=== PATIENT | female | born 1950 | race Caucasian/White ===

== ENCOUNTER → 2016-06-11 | Outpatient (CLI) | payer OTHER ==
--- NOTE | 2016-06-11 12:01 | USB ---
Reason for exam: additional evaluation requested from abnormal screening. History: Patient is postmenopausal. Family history of breast cancer in mother. Physical Findings: Nurse did not find any significant physical abnormalities on exam. US Breast Workup Limited LUZMAR[facility] Left breast ultrasound demonstrates a 1.2 x 0.6 x 1.3cm oval, solid, questionable node at 2 o'clock. Right breast ultrasound demonstrates a 0.7 x 0.6 x 0.7cm round, solid, questionable node at 7 o'clock. These results were verbally communicated with the patient and result sheet given to the patient on 06/11/16. ASSESSMENT: Benign, BI-RAD 2 RECOMMENDATION: Return to routine screening mammogram schedule for both breasts.
== END | disposition home or self-care (01) ==
LOC: RADUSWWP 10:22
PROVIDERS: ATTEND Family Medicine
DX: R92.8 Other abnormal and inconclusive findings on diagnostic imaging of breast (principal)

== ENCOUNTER → 2017-03-17 | Outpatient (CLI) | payer MEDICARE, OTHER ==
--- NOTE | 2017-03-17 14:31 | XR ---
EXAMINATION TYPE: XR chest 2V DATE OF EXAM: 03/17/2017 COMPARISON: 09/20/2015 TECHNIQUE: PA and lateral views submitted. HISTORY: Cough FINDINGS: The heart is prominent. Small right pleural effusion and left pleural effusion seen. Subsegmental leyda ear changes. No overt failure or pneumothorax. IMPRESSION: 1. Small bilateral pleural effusion and basilar atelectasis favored over early infiltrate.
== END | disposition home or self-care (01) ==
LOC: LABWHC1 13:16
PROVIDERS: ATTEND Family Medicine
DX: J98.11 Atelectasis (principal); J90 Pleural effusion, not elsewhere classified
CPT/HCPCS: 71020; 93005

== ENCOUNTER 2017-09-17 10:54 | Emergency (ER) | payer MEDICARE, OTHER ==
[2017-09-17 11:25] VITALS: BP 124/64; PULSE 56; RESP 16; TEMP 96.9
--- NOTE | 2017-09-17 11:51 | XR ---
EXAMINATION TYPE: XR ankle complete RT DATE OF EXAM: 09/17/2017 CLINICAL HISTORY: Right ankle pain and swelling today. TECHNIQUE: Frontal, lateral and oblique images of the right ankle are obtained. COMPARISON: None. FINDINGS: There is no acute fracture/dislocation evident in the right ankle. There is osteophyte for mation from the medial malleolus. The ankle mortise appears within normal limits. There is mild diff use subcutaneous edema without focal swelling. There is calcaneal spurring superiorly with ossificati on along the distal Achilles tendon also present IMPRESSION: There is no acute fracture or dislocation in the right ankle. As above.
--- NOTE | 2017-09-17 12:41 | ED ---
General Adult HPI - General Chief complaint: Extremity Injury, Lower Stated complaint: Ankle Pain/Swelling Time Seen by Provider: 09/17/17 12:12 Source: patient, RN notes reviewed Mode of arrival: ambulatory Limitations: no limitations - History of Present Illness Initial comments: 67-year-old female sent to the emergency department for a chief complaint of right ankle pain. Patient denies any known injury. Patient states the pain is along the lateral side of the ankle. Patient states it hurts to walk on. Patient has not tried anything for pain or icing the lower extremity. Patient states it started when she woke up this morning and noticed it. Patient states she has noticed minor swelling on the lateral side of the ankle as well. Patient denies ever having surgery in that right ankle. Patient denies any pain in the back of the calf or the knee. Patient denies any history of blood clots. Patient denies any pain anywhere else in the foot, ankle, or leg. Patient denies chest pain, shortness of breath, abdominal pain, nausea or vomiting. - Related Data Home Medications Medication Instructions Recorded Confirmed Atorvastatin [Lipitor] 40 mg PO HS 09/04/15 09/17/17 Furosemide [Lasix] 40 mg PO DAILY 09/17/17 09/17/17 Losartan/Hydrochlorothiazide 1 tab PO DAILY 09/17/17 09/17/17 [Losartan-Hctz 100-12.5 mg Tab] Metoprolol Succinate [Toprol XL] 25 mg PO DAILY 09/17/17 09/17/17 Previous Rx's Medication Instructions Recorded Ibuprofen [Motrin] 600 mg PO Q8HR PRN #20 tab 09/17/17 Allergies Allergy/AdvReac Type Severity Reaction Status Date / Time Penicillins Allergy Rash/Hives Verified 09/17/17 12:28 Review of Systems ROS Statement: Those systems with pertinent positive or pertinent negative responses have been documented in the HPI. ROS Other: All systems not noted in ROS Statement are negative. Past Medical History Past Medical History: Heart Failure, Hyperlipidemia, Hypertension History of Any Multi-Drug Resistant Organisms: None Reported Past Surgical History: Tonsillectomy Past Psychological History: Anxiety, Depression Smoking Status: Never smoker Past Alcohol Use History: Rare Past Drug Use History: None Reported General Exam Limitations: no limitations General appearance: alert, in no apparent distress Respiratory exam: Present: normal lung sounds bilaterally. Absent: respiratory distress, wheezes, rales, rhonchi, stridor Cardiovascular Exam: Present: regular rate, normal rhythm, normal heart sounds. Absent: systolic murmur, diastolic murmur, rubs, gallop, clicks Extremities exam: Present: tenderness (Tenderness inferior to the lateral malleolus of the right ankle), normal capillary refill, joint swelling (Mild swelling to the lateral ankle), other (2+ pedal pulses bilaterally.). Absent: full ROM (Limited inversion and dorsiflexion of the right ankle with pain), pedal edema, calf tenderness (Negative homans sign) Neurological exam: Present: alert, oriented X3 Psychiatric exam: Present: normal affect, normal mood Course Vital Signs 09/17/17 11:22 Temperature 96.9 F L Pulse Rate 56 L Respiratory 16 Rate Blood Pressure 124/64 O2 Sat by Pulse 98 Oximetry Medical Decision Making - Medical Decision Making 67-year-old female presents to the emergency department for a chief complaint of ankle pain. Patient denies injury. Patient has tenderness to the inferior lateral malleolus. No tenderness on any bony aspects. Patient's pain is worse with inversion and dorsiflexion of the right ankle. X-ray demonstrates no acute bony abnormalities of the right ankle. Patient has not tried anything for pain. This is likely a sprain. She will follow-up with her primary care provider. In the meantime she will take ibuprofen or Tylenol and use the rice method of therapy as discussed. Instructions are also included and discharge. She will return to the emergency Department if she notices any worsening symptoms. Disposition Clinical Impression: Ankle pain Disposition: HOME SELF-CARE Condition: Good Instructions: Ankle Sprain (ED), RICE Therapy (ED) Additional Instructions: Please take ibuprofen or Tylenol and use the rice method of therapy as discussed. Instructions are included in your discharge paperwork. Please follow-up with primary care in 1-2 days. Please return to the emergency department if symptoms worsen. Prescriptions: Ibuprofen [Motrin] 600 mg PO Q8HR PRN #20 tab PRN Reason: Pain Referrals: Domenic Enciso DO [Primary Care Provider] - 1-2 days Time of Disposition: 12:33
== END 2017-09-17 12:48 | disposition home or self-care (01) ==
LOC: EC 10:54
DX: M25.571 Pain in right ankle and joints of right foot (principal); I11.0 Hypertensive heart disease with heart failure; I50.9 Heart failure, unspecified; E78.5 Hyperlipidemia, unspecified; F32.9 Major depressive disorder, single episode, unspecified; F41.9 Anxiety disorder, unspecified; Z79.899 Other long term (current) drug therapy; Z88.0 Allergy status to penicillin
CPT/HCPCS: 99283

== ENCOUNTER 2017-11-10 22:20 | Emergency (ER) | payer MEDICARE, OTHER ==
[2017-11-10 22:39] VITALS: TEMP 98.1
--- NOTE | 2017-11-10 23:20 | ED ---
Skin/Abscess/FB HPI - General Chief complaint: Skin/Abscess/Foreign Body Stated complaint: bite on stomach Time Seen by Provider: 11/10/17 23:03 Source: patient, RN notes reviewed, old records reviewed Mode of arrival: ambulatory Limitations: no limitations - History of Present Illness Initial comments: 67 year old female with CC of insect bite on her Stomach. She reports that she applayed some cream over the area. She was concerned and wanted to be evaluated. Denies pruritis or pain. She does not know what bit her. She denies fevers, chills, numbness, or tingling. - Related Data Home Medications Medication Instructions Recorded Confirmed Atorvastatin [Lipitor] 40 mg PO HS 09/04/15 11/10/17 Furosemide [Lasix] 40 mg PO DAILY 09/17/17 11/10/17 Losartan/Hydrochlorothiazide 1 tab PO DAILY 09/17/17 11/10/17 [Losartan-Hctz 100-12.5 mg Tab] Metoprolol Succinate [Toprol XL] 25 mg PO DAILY 09/17/17 11/10/17 Previous Rx's Medication Instructions Recorded Hydrocortisone Cream 1 applic TOPICAL QID #1 tube 11/10/17 [Hydrocortisone 1% Cream] Allergies Allergy/AdvReac Type Severity Reaction Status Date / Time Penicillins Allergy Rash/Hives Verified 11/10/17 22:40 Review of Systems ROS Statement: Those systems with pertinent positive or pertinent negative responses have been documented in the HPI. ROS Other: All systems not noted in ROS Statement are negative. Past Medical History Past Medical History: Heart Failure, Hyperlipidemia, Hypertension History of Any Multi-Drug Resistant Organisms: None Reported Past Surgical History: Tonsillectomy Past Psychological History: Anxiety, Depression Smoking Status: Former smoker Past Alcohol Use History: None Reported Past Drug Use History: None Reported General Exam - General Exam Comments Initial Comments: This is a well appearing 67 year old female, no distress. Limitations: no limitations General appearance: alert, in no apparent distress Head exam: Present: atraumatic, normocephalic, normal inspection Eye exam: Present: normal appearance, PERRL, EOMI. Absent: scleral icterus, conjunctival injection, periorbital swelling ENT exam: Present: normal exam, mucous membranes moist Neck exam: Present: normal inspection. Absent: tenderness, meningismus, lymphadenopathy Respiratory exam: Present: normal lung sounds bilaterally. Absent: respiratory distress, wheezes, rales, rhonchi, stridor Cardiovascular Exam: Present: regular rate, normal rhythm, normal heart sounds. Absent: systolic murmur, diastolic murmur, rubs, gallop, clicks GI/Abdominal exam: Present: soft, normal bowel sounds, other (2cm area of erythema over abdomen. ). Absent: distended, tenderness, guarding, rebound, rigid Extremities exam: Present: normal inspection, full ROM, normal capillary refill. Absent: tenderness, pedal edema, joint swelling, calf tenderness Back exam: Present: normal inspection Neurological exam: Present: alert, oriented X3, CN II-XII intact Psychiatric exam: Present: normal affect, normal mood Skin exam: Present: warm, dry, intact, normal color. Absent: rash Course Vital Signs 11/10/17 11/10/17 22:36 23:52 Temperature 98.1 F 98.1 F Pulse Rate 59 L 57 L Respiratory 15 16 Rate Blood Pressure 165/70 124/79 O2 Sat by Pulse 100 97 Oximetry Medical Decision Making - Medical Decision Making Patient is a 67 year old female withCC of insect bite over abdomen. She has a 2 cm area of localized erythema and reaction tobite. No streaking. Patient appears well. Discussed using steriod cream and monitoring if the redness worsens to return. Discussed return parameters. Disposition Clinical Impression: Insect bite Disposition: HOME SELF-CARE Condition: Good Instructions: Insect Bite or Sting (ED) Additional Instructions: Apply cool compresses over the area. Take Benadryl. If the area of redness worsens return. Apply the cortisone cream over the area. Prescriptions: Hydrocortisone Cream [Hydrocortisone 1% Cream] 1 applic TOPICAL QID #1 tube Is patient prescribed a controlled substance at d/c from ED?: No When asked, does pt state using other controlled substances?: No If prescribed controlled substance>3 days was MAPS reviewed?: No If opioid is for acute pain is fill amount 7 days or less?: No If Rx opioid, was Start Talking consent form obtained?: No Referrals: Domenic Enciso DO [Primary Care Provider] - 1-2 days Time of Disposition: 23:19
[2017-11-11 00:01] VITALS: BP 124/79; PULSE 57; RESP 16
== END 2017-11-10 23:52 | disposition home or self-care (01) ==
LOC: EC 22:20
DX: S30.861A Insect bite (nonvenomous) of abdominal wall, initial encounter (principal); I11.0 Hypertensive heart disease with heart failure; I50.9 Heart failure, unspecified; E78.5 Hyperlipidemia, unspecified; Z88.0 Allergy status to penicillin; Z79.899 Other long term (current) drug therapy; Z87.891 Personal history of nicotine dependence; W57.XXXA Bitten or stung by nonvenomous insect and other nonvenomous arthropods, initial encounter
CPT/HCPCS: 99283

== ENCOUNTER 2018-03-17 10:09 | Emergency (ER) | payer MEDICARE, OTHER ==
--- NOTE | 2018-03-17 10:33 | ED ---
Arrhythmia/Palpitations HPI - General Chief Complaint: Arrhythmia/Palpitations Stated Complaint: Palpitations Time Seen by Provider: 03/17/18 10:15 Source: patient, RN notes reviewed Mode of arrival: wheelchair Limitations: no limitations - History of Present Illness Initial Comments: This is a 68-year-old female history of CHF who presents with 2 issues today was that she's been having more and pronounced skin beats also she is had pain and swelling to the left leg since chest today. No chest pain fevers chills nausea vomiting sweats no overt shortness of breath at this time no other modifying factors she did recently have one of her medications. Complaint: "skipped beats" - Related Data Home Medications Medication Instructions Recorded Confirmed Furosemide [Lasix] 40 mg PO DAILY 09/17/17 03/17/18 Losartan/Hydrochlorothiazide 1 tab PO DAILY 09/17/17 03/17/18 [Losartan-Hctz 100-12.5 mg Tab] Metoprolol Succinate [Toprol XL] 25 mg PO DAILY 09/17/17 03/17/18 Atorvastatin [Lipitor] 80 mg PO HS 03/17/18 03/17/18 Potassium Chloride ER [K-Dur 10] 10 meq PO DAILY 03/17/18 03/17/18 Previous Rx's Medication Instructions Recorded Ibuprofen 800 mg PO Q6HR PRN #20 tablet 03/17/18 Allergies Allergy/AdvReac Type Severity Reaction Status Date / Time Penicillins Allergy Rash/Hives Verified 03/17/18 10:39 Review of Systems ROS Statement: Those systems with pertinent positive or pertinent negative responses have been documented in the HPI. ROS Other: All systems not noted in ROS Statement are negative. Past Medical History Past Medical History: Heart Failure, Hyperlipidemia, Hypertension History of Any Multi-Drug Resistant Organisms: None Reported Past Surgical History: Tonsillectomy, Tubal Ligation Past Psychological History: Anxiety, Depression Smoking Status: Former smoker Past Alcohol Use History: None Reported Past Drug Use History: None Reported General Exam - General Exam Comments Initial Comments: This is a well-developed well-nourished awake alert oriented 3 female Limitations: no limitations General appearance: alert, in no apparent distress Head exam: Present: atraumatic, normocephalic, normal inspection Eye exam: Present: normal appearance, PERRL, EOMI. Absent: scleral icterus, conjunctival injection, periorbital swelling ENT exam: Present: normal exam, mucous membranes moist Neck exam: Present: normal inspection. Absent: tenderness, meningismus, lymphadenopathy Respiratory exam: Present: normal lung sounds bilaterally. Absent: respiratory distress, wheezes, rales, rhonchi, stridor Cardiovascular Exam: Present: regular rate, normal rhythm, normal heart sounds. Absent: systolic murmur, diastolic murmur, rubs, gallop, clicks GI/Abdominal exam: Present: soft, normal bowel sounds. Absent: distended, tenderness, guarding, rebound, rigid Extremities exam: Present: normal inspection, full ROM, normal capillary refill. Absent: tenderness, pedal edema, joint swelling, calf tenderness Back exam: Present: normal inspection Neurological exam: Present: alert, oriented X3, CN II-XII intact Psychiatric exam: Present: normal affect, normal mood Skin exam: Present: warm, dry, intact, normal color. Absent: rash Course Vital Signs 03/17/18 03/17/18 10:11 12:39 Temperature 98.4 F Pulse Rate 75 70 Respiratory 18 18 Rate Blood Pressure 117/65 101/57 O2 Sat by Pulse 98 98 Oximetry EKG Findings - EKG Results: EKG: interpreted by BEKA, sinus rhythm (Sinus rhythm with sinus arrhythmia rate was 86. Interval 162 QRS 86 QT since QTC 366/437 minimal voltage criteria for LVH nonspecific anterior configuration) Medical Decision Making - Medical Decision Making The patient did get some improvement in her pain with Toradol she will be discharged with follow-up with her doctor return when necessary I will recommend that she double up on her potassium for a week he get a recheck through her physician. - Lab Data Result diagrams: 03/17/18 10:35 03/17/18 10:35 Lab Results 03/17/18 03/17/18 03/17/18 Range/Units 10:35 10:35 10:35 WBC 7.4 (3.8-10.6) k/uL RBC 3.92 (3.80-5.40) m/uL Hgb 12.2 (11.4-16.0) gm/dL Hct 35.2 (34.0-46.0) % MCV 89.7 (80.0-100.0) fL MCH 31.1 (25.0-35.0) pg MCHC 34.7 (31.0-37.0) g/dL RDW 13.9 (11.5-15.5) % Plt Count 126 L (150-450) k/uL Neutrophils % 70 % Lymphocytes % 23 % Monocytes % 4 % Eosinophils % 1 % Basophils % 1 % Neutrophils # 5.2 (1.3-7.7) k/uL Lymphocytes # 1.7 (1.0-4.8) k/uL Monocytes # 0.3 (0-1.0) k/uL Eosinophils # 0.1 (0-0.7) k/uL Basophils # 0.0 (0-0.2) k/uL PT (9.0-12.0) sec INR (<1.2) APTT (22.0-30.0) sec D-Dimer (<0.60) mg/L FEU Sodium 142 (137-145) mmol/L Potassium 3.0 L (3.5-5.1) mmol/L Chloride 107 (98-107) mmol/L Carbon Dioxide 25 (22-30) mmol/L Anion Gap 10 mmol/L BUN 23 H (7-17) mg/dL Creatinine 0.98 (0.52-1.04) mg/dL Est GFR (CKD-EPI)AfAm 70 (>60 ml/min/1.73 sqM) Est GFR (CKD-EPI)NonAf 60 (>60 ml/min/1.73 sqM) Glucose 154 H (74-99) mg/dL Calcium 8.9 (8.4-10.2) mg/dL Magnesium 1.8 (1.6-2.3) mg/dL Total Bilirubin 1.6 H (0.2-1.3) mg/dL AST 21 (14-36) U/L ALT 20 (9-52) U/L Alkaline Phosphatase 73 (38-126) U/L Total Creatine Kinase 65 (30-135) U/L CK-MB (CK-2) 0.5 (0.0-2.4) ng/mL CK-MB (CK-2) Rel Index 0.8 Troponin I <0.012 (0.000-0.034) ng/mL Total Protein 6.6 (6.3-8.2) g/dL Albumin 3.5 (3.5-5.0) g/dL TSH 1.490 (0.465-4.680) mIU/L 03/17/18 Range/Units 10:35 WBC (3.8-10.6) k/uL RBC (3.80-5.40) m/uL Hgb (11.4-16.0) gm/dL Hct (34.0-46.0) % MCV (80.0-100.0) fL MCH (25.0-35.0) pg MCHC (31.0-37.0) g/dL RDW (11.5-15.5) % Plt Count (150-450) k/uL Neutrophils % % Lymphocytes % % Monocytes % % Eosinophils % % Basophils % % Neutrophils # (1.3-7.7) k/uL Lymphocytes # (1.0-4.8) k/uL Monocytes # (0-1.0) k/uL Eosinophils # (0-0.7) k/uL Basophils # (0-0.2) k/uL PT 10.0 (9.0-12.0) sec INR 1.0 (<1.2) APTT 23.3 (22.0-30.0) sec D-Dimer 0.55 (<0.60) mg/L FEU Sodium (137-145) mmol/L Potassium (3.5-5.1) mmol/L Chloride (98-107) mmol/L Carbon Dioxide (22-30) mmol/L Anion Gap mmol/L BUN (7-17) mg/dL Creatinine (0.52-1.04) mg/dL Est GFR (CKD-EPI)AfAm (>60 ml/min/1.73 sqM) Est GFR (CKD-EPI)NonAf (>60 ml/min/1.73 sqM) Glucose (74-99) mg/dL Calcium (8.4-10.2) mg/dL Magnesium (1.6-2.3) mg/dL Total Bilirubin (0.2-1.3) mg/dL AST (14-36) U/L ALT (9-52) U/L Alkaline Phosphatase (38-126) U/L Total Creatine Kinase (30-135) U/L CK-MB (CK-2) (0.0-2.4) ng/mL CK-MB (CK-2) Rel Index Troponin I (0.000-0.034) ng/mL Total Protein (6.3-8.2) g/dL Albumin (3.5-5.0) g/dL TSH (0.465-4.680) mIU/L - Radiology Data Radiology results: report reviewed (I did review the imaging and reports no acute findings.), image reviewed Disposition Clinical Impression: Palpitations, Hypokalemia, Leg pain Disposition: HOME SELF-CARE Condition: Good Instructions: Heart Palpitations (ED), Hypokalemia (ED), Leg Pain (ED) Additional Instructions: Double up on her potassium for 1 week Prescriptions: Ibuprofen 800 mg PO Q6HR PRN #20 tablet PRN Reason: Pain Is patient prescribed a controlled substance at d/c from ED?: No Referrals: Domenic Enciso DO [Primary Care Provider] - 1-2 days
[2018-03-17 10:48] LABS: Basophils % (A) 1 %; Eosinophils # (A) 0.1 k/uL (0-0.7); Eosinophils % (A) 1 %; HCT 35.2 % (34.0-46.0); HGB 12.2 gm/dL (11.4-16.0); Lymphocytes # (A) 1.7 k/uL (1.0-4.8); Lymphocytes % (A) 23 %; MCH 31.1 pg (25.0-35.0); MCHC 34.7 g/dL (31.0-37.0); MCV 89.7 fL (80.0-100.0); Mean Platelet Volume 8.1; Monocytes # (A) 0.3 k/uL (0-1.0); Monocytes % (A) 4 %; Neutrophils # (A) 5.2 k/uL (1.3-7.7); Neutrophils % (A) 70 %; Platelet Count 126 k/uL (150-450); RBC 3.92 m/uL (3.80-5.40); RDW 13.9 % (11.5-15.5); WBC 7.4 k/uL (3.8-10.6)
[2018-03-17 10:59] LABS: Albumin 3.5 g/dL (3.5-5.0); Calcium 8.9 mg/dL (8.4-10.2); Magnesium 1.8 mg/dL (1.6-2.3); Total Bilirubin 1.6 mg/dL (0.2-1.3); Total Protein 6.6 g/dL (6.3-8.2)
[2018-03-17 11:01] LABS: D-Dimer 0.55 mg/L FEU (<0.60); Partial Thromboplastin Time 23.3 sec (22.0-30.0)
--- NOTE | 2018-03-17 11:04 | XR ---
EXAMINATION TYPE: XR chest 2V DATE OF EXAM: 03/17/2018 COMPARISON: Prior chest x-ray 03/17/2017 HISTORY: Dysrhythmia TECHNIQUE: Frontal and lateral views of the chest are obtained. FINDINGS: Patient is rotated. There are overlying cardiac leads. There is no focal air space opacity, pleural effusion, or pneumothorax seen. The cardiac silhouette size is stable, heart size is accent uated by rotation. The osseous structures are intact. The aorta is dense. IMPRESSION: Stable exam. Suspect cardiomegaly.
[2018-03-17 11:13] LABS: Creatine Kinase 65 U/L (30-135)
[2018-03-17] MEDS ORDERED: MAGNESIUM SULFATE-D5W PMX 1 GM in DEXTROSE/WATER 1 100ML.BAG IVPB ONE (11:15)
[2018-03-17] MEDS ORDERED: POTASSIUM CHLORIDE ER 20 MEQ TAB.ER PO STA (11:15)
[2018-03-17 11:26] LABS: Creatine Kinase MB 0.5 ng/mL (0.0-2.4); Troponin I <0.012 ng/mL (0.000-0.034)
--- NOTE | 2018-03-17 11:38 | US ---
EXAMINATION TYPE: US venous doppler duplex LE LT DATE OF EXAM: 03/17/2018 11:26 AM COMPARISON: NONE CLINICAL HISTORY: Pain. ankle swelling x 1 day SIDE PERFORMED: Left TECHNIQUE: The lower extremity deep venous system is examined utilizing real time linear array sonog eneida with graded compression, doppler sonography and color-flow sonography. VESSELS IMAGED: External Iliac Vein (EIV) Common Femoral Vein Deep Femoral Vein Greater Saphenous Vein * Femoral Vein Popliteal Vein Small Saphenous Vein * Proximal Calf Veins (* superficial vessels) Left Leg: Appears negative for DVT There is normal flow, compressibility, vascular waveforms. IMPRESSION: No evident deep venous thrombosis at or above the left knee. Follow-up as indicated.
[2018-03-17 12:40] VITALS: BP 101/57
[2018-03-17] MEDS ORDERED: KETOROLAC 30 MG/ML 1 ML VIAL IVP STA (12:48)
[2018-03-17 13:52] VITALS: PULSE 73; RESP 16; TEMP 98.6
--- NOTE | 2018-03-17 14:02 | XR ---
EXAMINATION TYPE: XR ankle complete LT DATE OF EXAM: 03/17/2018 CLINICAL HISTORY: Pain and swelling. TECHNIQUE: Frontal, lateral and oblique images of the left ankle are obtained. COMPARISON: None. FINDINGS: Demineralization is present. There is no acute fracture/dislocation evident in the left ank le. Small spur from medial malleolus is seen. There is moderate-sized superior calcaneal spur at dis jane Achilles tendon attachment. There is tiny inferior calcaneal spur. There is suspected accessory o ssicle near base of cuboid bone seen best on lateral view. The ankle mortise appears within normal li mits. The overlying soft tissue appears unremarkable. IMPRESSION: There is no acute fracture or dislocation in the left ankle.
== END 2018-03-17 14:20 | disposition home or self-care (01) ==
LOC: EC 10:09
DX: E87.6 Hypokalemia (principal); M79.605 Pain in left leg; M79.89 Other specified soft tissue disorders; I11.0 Hypertensive heart disease with heart failure; I50.9 Heart failure, unspecified; E78.5 Hyperlipidemia, unspecified; Z87.891 Personal history of nicotine dependence; Z79.899 Other long term (current) drug therapy; Z88.0 Allergy status to penicillin
CPT/HCPCS: 36415; 93005; 85379; 80053; 84443; 82550; 82553; 83735; 84484; 85025; 85610; 85730; 73610; 71046; 93971; 99285; 96365; 96375; J1885; J3475

== ENCOUNTER 2018-12-31 12:32 | Emergency (ER) | payer MEDICARE, OTHER ==
[2018-12-31 12:38] VITALS: BP 127/81; PULSE 58; RESP 18; TEMP 98.2
--- NOTE | 2018-12-31 13:02 | ED ---
Skin/Abscess/FB HPI - General Chief complaint: Skin/Abscess/Foreign Body Stated complaint: bug bite lt wrist Time Seen by Provider: 12/31/18 12:39 Source: patient, RN notes reviewed, old records reviewed Mode of arrival: ambulatory Limitations: no limitations - History of Present Illness Initial comments: Patient is a 68-year-old female who presents medicine department today with redness over the anterior aspect of her left wrist. Patient reports that she can she was bit by a spider. She states that she squeezed the area and small amount of pus was removed. Patient states that feels like there is still "poison". Patient denies any significant hand swelling. She denies any peripheral paresthesias. - Related Data Home Medications Medication Instructions Recorded Confirmed Furosemide [Lasix] 40 mg PO DAILY 09/17/17 03/17/18 Losartan/Hydrochlorothiazide 1 tab PO DAILY 09/17/17 03/17/18 [Losartan-Hctz 100-12.5 mg Tab] Metoprolol Succinate [Toprol XL] 25 mg PO DAILY 09/17/17 03/17/18 Atorvastatin [Lipitor] 80 mg PO HS 03/17/18 03/17/18 Potassium Chloride ER [K-Dur 10] 10 meq PO DAILY 03/17/18 03/17/18 Previous Rx's Medication Instructions Recorded Ibuprofen 800 mg PO Q6HR PRN #20 tablet 03/17/18 Cephalexin [Keflex] 500 mg PO Q6HR 3 Days #12 cap 12/31/18 Mupirocin 2% Oint [Bactroban 2% 1 applic TOPICAL TID #60 gm 12/31/18 Oint] Allergies Allergy/AdvReac Type Severity Reaction Status Date / Time Penicillins Allergy Rash/Hives Verified 12/31/18 12:38 Review of Systems ROS Statement: Those systems with pertinent positive or pertinent negative responses have been documented in the HPI. ROS Other: All systems not noted in ROS Statement are negative. Past Medical History Past Medical History: Heart Failure, Hyperlipidemia, Hypertension History of Any Multi-Drug Resistant Organisms: None Reported Past Surgical History: Tonsillectomy, Tubal Ligation Past Psychological History: Anxiety, Depression Smoking Status: Former smoker Past Alcohol Use History: Rare Past Drug Use History: None Reported General Exam - General Exam Comments Initial Comments: Patient is a 68-year-old female. Alert and oriented 3. No significant distress. Limitations: no limitations General appearance: alert, in no apparent distress Head exam: Present: atraumatic, normocephalic, normal inspection Eye exam: Present: normal appearance, PERRL, EOMI. Absent: scleral icterus, conjunctival injection, periorbital swelling ENT exam: Present: normal exam, mucous membranes moist Neck exam: Present: normal inspection. Absent: tenderness, meningismus, l ymphadenopathy Respiratory exam: Present: normal lung sounds bilaterally. Absent: respiratory distress, wheezes, rales, rhonchi, stridor Cardiovascular Exam: Present: regular rate, normal rhythm, normal heart sounds. Absent: systolic murmur, diastolic murmur, rubs, gallop, clicks GI/Abdominal exam: Present: soft, normal bowel sounds. Absent: distended, tenderness, guarding, rebound, rigid Extremities exam: Present: normal inspection, full ROM, normal capillary refill. Absent: tenderness, pedal edema, joint swelling, calf tenderness Left Forearm Wrist exam: Present: normal inspection, swelling ( is a 1-2 cm area of erythema and swelling over the radial aspect of the anterior wrist. Patient has no significant induration.) Hand Wrist exam: Present: normal inspection, full ROM Neuro motor exam: Present: wrist extension intact, thumb opposition intact, thumb IP flexion intact, thumb adduction intact, fingers 2-5 abduction intact Vascular: Present: normal capillary refill Back exam: Present: normal inspection Neurological exam: Present: alert, oriented X3, CN II-XII intact Psychiatric exam: Present: normal affect, normal mood Skin exam: Present: warm, dry, intact, normal color. Absent: rash Course Vital Signs 12/31/18 12:36 Temperature 98.2 F Pulse Rate 58 L Respiratory 18 Rate Blood Pressure 127/81 O2 Sat by Pulse 95 Oximetry Medical Decision Making - Medical Decision Making Patient is a 68-year-old female who presents emergency department today for evaluation for small wound over her left wrist. Patient was she was bit by a spider few days ago. She has a 2 cm area of erythema and firmness. No significant pustules noted at this time. Patient believes that these be drained. I offered incision and drainage. The area was cleaned with alcohol and an 18-gauge needle was inserted in the eye. Blood was removed and pus. I discussed that Patien twill be started on antibiotic ointment advise close follow-up with primary care doctor. All questions were answered return parameters were discussed. Disposition Clinical Impression: Wound, open, wrist Disposition: HOME SELF-CARE Condition: Good Instructions (If sedation given, give patient instructions): Abscess (ED) Additional Instructions: Apply antibiotic ointment over the area. Keep the area clean and dry. Patient should've close follow-up with primary care doctor if area of redness worsens. Prescriptions: Mupirocin 2% Oint [Bactroban 2% Oint] 1 applic TOPICAL TID #60 gm Cephalexin [Keflex] 500 mg PO Q6HR 3 Days #12 cap Is patient prescribed a controlled substance at d/c from ED?: No Referrals: Domenic Enciso DO [Primary Care Provider] - 1-2 days Time of Disposition: 13:02
--- NOTE | 2019-01-01 02:05 | CDI ---
Documentation Clarification OP Dear Aries MELARA, DO Please do addendum to ED report for I&D procedure documentation, In MDM mentioned as 18 gauge needle used. So kindly clarify the procedure done. Thank you, Jewel Rubalcava Offset Label Rewinder If you have any question, Please contact gift shop manager at [phone] [facility]
== END 2018-12-31 13:23 | disposition home or self-care (01) ==
LOC: EC 12:32
DX: T63.301A Toxic effect of unspecified spider venom, accidental (unintentional), initial encounter (principal); S61.552A Open bite of left wrist, initial encounter; I11.0 Hypertensive heart disease with heart failure; I50.9 Heart failure, unspecified; E78.5 Hyperlipidemia, unspecified; Z79.899 Other long term (current) drug therapy; Z88.0 Allergy status to penicillin; Z87.891 Personal history of nicotine dependence
CPT/HCPCS: 10160; 99283

== ENCOUNTER → 2019-01-25 | Outpatient (CLI) | payer MEDICARE, OTHER ==
--- NOTE | 2019-01-25 15:33 | CT ---
EXAMINATION TYPE: CT brain wo/w con DATE OF EXAM: 01/25/2019 COMPARISON: None INDICATION: 6 days ago altered mental status and headache. DLP: 2254.6 mGycm, Automated exposure control for dose reduction was used. CONTRAST: 100 mL Isovue-300 CT of the brain is performed utilizing 3 mm thick sections through the posterior fossa and 3 mm thick sections through the remaining calvarium. Study is performed within 24 hours of arrival to the hosp ital. No abnormal hyperdensity is present to suggest an acute intracranial hemorrhage. No mass lesion is evident. No acute infarcts are evident. Ventricles and sulci are appropriate for the patient age. Paranasal sinuses and mastoid air cells within the [id number] are clear. The right A1 segment is slightly hypoplastic. Suspicious enhancement is not evident. IMPRESSIONS: 1. Normal pre and postcontrast MRI brain
== END | disposition home or self-care (01) ==
LOC: RADCTMAIN 14:31
PROVIDERS: ATTEND Family Medicine
DX: R29.810 Facial weakness (principal)
CPT/HCPCS: 70470; Q9967

== ENCOUNTER → 2019-04-07 | Outpatient (CLI) | payer MEDICARE, OTHER ==
--- NOTE | 2019-04-07 13:25 | US ---
EXAMINATION TYPE: US extremity nonvasc mass LT DATE OF EXAM: 04/07/2019 COMPARISON: NONE CLINICAL HISTORY: M79.672 pain in left foot. Pain at plantar surface inferior to great toe metatarsal . TECHNIQUE/FINDINGS: Targeted grayscale ultrasound was performed in the area of pain denoted by the pa tient on the plantar surface of the left great toe and metatarsal area. No sonographic cystic or tesfaye d masses are noted at patient's area of pain. No subcutaneous edema. No suspicious sonographic findin gs. IMPRESSION: No sonographic correlate to the patient's area of pain of the left foot. No cystic or so lid mass.
== END | disposition home or self-care (01) ==
LOC: RADUSWWP 11:50
PROVIDERS: ATTEND Family Medicine
DX: M79.672 Pain in left foot (principal)

== ENCOUNTER → 2021-05-04 | Outpatient (CLI) | payer MEDICARE, OTHER ==
--- NOTE | 2021-05-04 13:40 | US ---
EXAMINATION TYPE: US kidneys/renal and bladder DATE OF EXAM: 05/04/2021 COMPARISON: NONE CLINICAL HISTORY: N28.9 Disorder of kidney and ureter, unspecified. EXAM MEASUREMENTS: Right Kidney: 9.0 x 4.5 x 4.3 cm Left Kidney: 9.9 x 4.0 x 3.9 cm *Incidental finding of intraluminal gallstones Right Kidney: No hydronephrosis or masses seen Left Kidney: No hydronephrosis or masses seen Bladder: bladder not fully distended, patient felt like it was very full There is no evidence for hydronephrosis at this point in time. No nephrolithiasis is seen. No shabana s are identified. The urinary bladder is poorly distended and thus suboptimally evaluated. Bilatera l ureteral jets are not seen. IMPRESSION: No hydronephrosis seen bilaterally.
== END | disposition home or self-care (01) ==
LOC: RADUSWWP 12:28
PROVIDERS: ATTEND Family Medicine
DX: N28.9 Disorder of kidney and ureter, unspecified (principal)
CPT/HCPCS: 76770

== ENCOUNTER → 2022-01-02 | Outpatient (CLI) | payer MEDICARE, OTHER ==
--- NOTE | 2022-01-03 14:09 | MM ---
Reason for Exam: Screening (asymptomatic). Last mammogram was performed 5 year(s) and 7 month(s) ago. Patient History: Menarche at age 15. First Full-Term at age 20. Postmenopausal. Mother had breast cancer. Risk Values: Racheal 5 year model risk: 3.2%. NCI Lifetime model risk: 9.7%. Prior Study Comparison: 05/28/2016 Bilateral Screening Mammogram, [facility]. Tissue Density: There are scattered fibroglandular densities. Findings: Analyzed By CAD. Chronic nodularity is present. No suspicious groups of microcalcifications, spiculated or lobular masses, architectural distortion or other secondary signs of malignancy are mammographically apparent. Overall Assessment: Benign, BI-RAD 2 Management: Screening Mammogram of both breasts in 1 year. A negative mammogram report should not preclude additional follow up of suspicious palpable abnormalities. Patient should continue monthly self breast exam. A clinical breast exam by your physician is recommended on an annual basis and results should be correlated with mammographic findings. Electronically signed and approved by: Juanito Mora D.O. Radiologis
== END | disposition home or self-care (01) ==
LOC: RADMAMWWP 11:45
PROVIDERS: ATTEND Family Medicine
DX: Z12.31 Encounter for screening mammogram for malignant neoplasm of breast (principal)
CPT/HCPCS: 77063; 77067

== ENCOUNTER 2022-02-27 09:58 | Day surgery (SDC) | payer MEDICARE, OTHER ==
[2022-02-25 14:29] VITALS: BMI 39.4
[~2022-02-27 09:58] MED LIST: LACTATED RINGERS 1,000 ML IV SCH
[2022-02-27 10:29] VITALS: TEMP 97.8
[2022-02-27] MEDS ORDERED: PROPOFOL 10 MG/ML 20 ML VIAL IV ONE (11:00)
[2022-02-27] MEDS ORDERED: LIDOCAINE 2% INJ 20 MG/ML (2 ML VIAL) ONE (11:00)
--- NOTE | 2022-02-27 11:16 | P.PCN ---
Date of Procedure: 02/27/22 Procedure(s) Performed: BRIEF HISTORY: Patient is a 72-year-old pleasant white female scheduled for an elective colonoscopy as a part of screening for colorectal neoplasia. PROCEDURE PERFORMED: Colonoscopy With snare polypectomy. PREOPERATIVE DIAGNOSIS: screening for colon cancer IV sedation per Anesthesia. PROCEDURE: After informed consent was obtained, the patient, was brought into the endoscopy unit. IV sedation was administered by Anesthesia under continuous monitoring. Digital rectal examination was normal. Initially the Olympus CF-160 flexible video colonoscope was then inserted in the rectum, gradually advanced into the cecum without any difficulty. Careful examination was performed as the scope was gradually being withdrawn. Ileocecal valve and the appendiceal orifice were visualized and appeared normal. Prep was excellent. Mucosa of the cecum1.5 cm broad-based polyp removed by snare polypectomy. In the transverse colon there was a 2 cm broad-based polyp removed by snare polypectomy. Rest of the ascending colon, transverse colon, descending colon, sigmoid colon, and rectum appeared normal. Retroflexion was performed in the rectum and no lesions were seen. The patient tolerated the procedure well. IMPRESSION: 1.5 cm cecal polyp status post polypectomy 2 cm broad-based transverse colon polyp status post polypectomy Rest of the colon appeared normal RECOMMENDATIONS: Findings of this examination were discussed with the patient As well as a family. She was advised to follow with the biopsy results. If the biopsies adenoma she can have a repeat colonoscopy in 3 years..
[2022-02-27 11:27] VITALS: RESP 16
[2022-02-27 11:43] VITALS: BP 95/62; PULSE 67
== END 2022-02-27 11:58 | disposition home or self-care (01) ==
LOC: ORWHC2ENDO 09:58
PROVIDERS: ATTEND Internal Medicine Gastroenterology
DX: Z12.11 Encounter for screening for malignant neoplasm of colon (principal); D12.0 Benign neoplasm of cecum; D12.3 Benign neoplasm of transverse colon; I11.0 Hypertensive heart disease with heart failure; I50.9 Heart failure, unspecified; E78.5 Hyperlipidemia, unspecified; Z79.899 Other long term (current) drug therapy; Z88.0 Allergy status to penicillin; Z98.51 Tubal ligation status; Z90.89 Acquired absence of other organs
CPT/HCPCS: 88305; 45385; J2704; J2001

== ENCOUNTER 2022-03-21 07:51 | Emergency (ER) | payer MEDICARE, OTHER ==
[2022-03-21 08:02] VITALS: BP 133/89; PULSE 84; RESP 22; TEMP 98.4
--- NOTE | 2022-03-21 09:06 | XR ---
EXAMINATION TYPE: XR chest 2V DATE OF EXAM: 03/21/2022 8:21 AM COMPARISON: Chest radiographs from 02/02/2022 TECHNIQUE: XR chest 2V Frontal and lateral views of the chest. CLINICAL INDICATION:Female, 72 years old with history of cough; FINDINGS: Lungs/Pleura: There is no evidence of pleural effusion, focal consolidation, or pneumothorax. Pulmonary vascularity: Unremarkable. Heart/mediastinum: Cardiomediastinal silhouette is unremarkable. Musculoskeletal: No acute osseous pathology. Degenerative changes of the visualized spine. IMPRESSION: No acute cardiopulmonary disease/process. No significant change from prior examination.
== END 2022-03-21 11:28 | disposition left against medical advice (07) ==
LOC: EC 07:51
DX: Z53.21 Procedure and treatment not carried out due to patient leaving prior to being seen by health care provider (principal)
CPT/HCPCS: 71046; 87635; 99499

== ENCOUNTER → 2022-05-08 | Outpatient (CLI) | payer MEDICARE, OTHER ==
--- NOTE | 2022-05-08 17:15 | CT ---
EXAMINATION TYPE: CT abdomen w con DATE OF EXAM: 05/08/2022 COMPARISON: NONE HISTORY: 72-year-old female R19.4, change in bowel habit, pain TECHNIQUE: Contiguous axial scanning of the abdomen following administration of 70 ml Isovue 300 IV c ontrast. Delayed images through the kidneys and coronal/sagittal reconstructions performed. CT DLP: 1521 mGycm Automated exposure control for dose reduction was used. FINDINGS: LUNG BASES: Heart is normal in size. Some strandy atelectasis in the lower lungs. No pleural effusion . Tiny hiatal hernia. LIVER/GB: Lobulated 2.8 cm cyst anterior right liver lobe. A few layering gallstones. No abnormal gal lbladder distention. Questionable 1 cm mural based soft tissue nodule along the anterior fundal gallb ladder wall. Portal venous system is patent. No biliary ductal dilatation. PANCREAS: No significant abnormality is seen. SPLEEN: No significant abnormality is seen. ADRENALS: No significant abnormality is seen. KIDNEYS: A few small cortical cysts within the right kidney measuring up to 9 mm. Symmetric uptake an d excretion of contrast from both kidneys. No hydronephrosis. BOWEL: No dilated small bowel, free fluid, free air. Normal appendix. No significant stool burden. Or al contrast progressed to the hepatic flexure of the colon. Normal small caliber appendix. LYMPH NODES: No mesenteric or retroperitoneal lymphadenopathy. PELVIS: Not imaged. BONES: There is hypertrophic facet arthropathy. Degenerative grade 1 anterolisthesis L4-L5 and L5-S1. 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 IMPRESSION: 1. CHOLELITHIASIS. IN ADDITION, THERE IS A QUESTIONABLE 1 CM SOFT TISSUE NODULE ALONG THE ANTERIOR FU NDAL GALLBLADDER WALL MAY REPRESENT A GALLBLADDER WALL POLYP. RECOMMEND THREE-MONTH FOLLOW-UP GALLBLA DDER ULTRASOUND TO REASSESS THIS AREA. IF NOT SEEN BY ULTRASOUND, RECOMMEND 6-12 MONTH FOLLOW-UP CT T O REASSESS. 2. TINY HIATAL HERNIA.
== END | disposition home or self-care (01) ==
LOC: RADCTMAIN 14:54
PROVIDERS: ATTEND Family Medicine
DX: K80.20 Calculus of gallbladder without cholecystitis without obstruction (principal); K44.9 Diaphragmatic hernia without obstruction or gangrene; R19.4 Change in bowel habit
CPT/HCPCS: 82565; 84520; 74160; 36415; Q9967 ×2

== ENCOUNTER → 2022-10-16 | Outpatient (CLI) | payer MEDICARE, OTHER ==
--- NOTE | 2022-10-16 09:17 | US ---
EXAMINATION TYPE: US gallbladder DATE OF EXAM: 10/16/2022 COMPARISON: CT abdomen 05/08/2022 renal ultrasound 05/04/2021 CLINICAL INDICATION: Female, 72 years old with history of K82.8 DISEASE OF GALLBLADDER; Patient state s she was told she had GB problems. No pain. TECHNIQUE: Multiple sonographic images of the right upper quadrant are obtained. FINDINGS: EXAM MEASUREMENTS: Liver Length: 13.4 cm Gallbladder Wall: 0.3 cm CBD: 0.7 cm Right Kidney: 9.8 x 4.1 x 4.5 cm DATA ENTRY REPRESENTATIVE NOTES: Suboptimal due to overlying bowel gas Pancreas: Obscured by bowel gas Liver: Limited visualization. Right lobe complex lesion= 2.8 x 2.8 x 2.1 cm Gallbladder: Mobile stones. Echogenic lesion adjacent to wall = 0.7 x 0.7 x 0.6 cm. Fundal hypoecho ic area = 1.0 x 1.0 x 0.8 cm Evidence for sonographic Herzog's sign: neg CBD: wnl Right Kidney: Upper lateral exophytic anechoic lesion = 0.9 x 1.3 x 0.8 cm Pancreas is obscured due to overlying bowel gas. Redemonstration of a hepatic cyst with thin calcifie d septation. No internal color flow. Cholelithiasis is demonstrated. No gallbladder wall thickening o r pericholecystic fluid. There is a hypoechoic nondependent nodule identified within the fundal aspec t of the gallbladder without internal color flow. Per preboarder, negative sonographic Herzog sign. Common bile duct is within normal limits. No hydronephrosis, solid mass, or nephrolithiasis involving the right kidney. Simple cyst is demonstrated. IMPRESSION: 1. Cholelithiasis without evidence for acute cholecystitis. 2. Fundal hypoechoic lesion is measuring up to 1 cm suspicious for gallbladder polyp. Surgical consu ltation is recommended. 3. Hepatic cyst with thin septation.
== END | disposition home or self-care (01) ==
LOC: RADUSWWP 08:11
PROVIDERS: ATTEND Family Medicine
DX: K82.8 Other specified diseases of gallbladder (principal); K76.89 Other specified diseases of liver; K80.20 Calculus of gallbladder without cholecystitis without obstruction
CPT/HCPCS: 76705

== ENCOUNTER 2022-12-11 07:39 | Day surgery (SDC) | payer MEDICARE, OTHER ==
[~2022-12-11 07:39] MED LIST changes: +ACETAMINOPHEN TAB 500 MG TAB PO PRN; +DEXAMETHASONE SOD PHOSPHATE 4 MG/ML 1 ML VIAL IV ONE; +HEPARIN SODIUM,PORCINE/PF 5,000 UNIT/0.5 ML SYRINGE SQ PRN; +HYDROmorphone 0.5 MG/0.5 ML SYRINGE IVP PRN; +LIDOCAINE 1% (10MG/ML) FOR IV START INTRADERMA PRN; +MIDAZOLAM 2 MG/2 ML VIAL IV PRN; +ONDANSETRON 4 MG/2 ML VIAL IVP ONE
[2022-12-11 08:24] LABS: HGB 13.1 gm/dL (11.4-16.0); MCH 30.4 pg (25.0-35.0); MCHC 33.6 g/dL (31.0-37.0); MCV 90.4 fL (80.0-100.0); Mean Platelet Volume 8.8; Platelet Count 194 k/uL (150-450); RBC 4.32 m/uL (3.80-5.40); RDW 14.8 % (11.5-15.5); WBC 8.3 k/uL (3.8-10.6)
[2022-12-11 08:31] LABS: African American GFR (CKD) >90 (>60 ml/min/1.73 sqM); Anion Gap 11 mmol/L; Blood Urea Nitrogen 14 mg/dL (7-17); Calcium 8.3 mg/dL (8.4-10.2); Carbon Dioxide 20 mmol/L (22-30); Chloride 111 mmol/L (98-107); Glucose 117 mg/dL (74-99); Non-African American GFR(CKD) 89 (>60 ml/min/1.73 sqM); Potassium 3.1 mmol/L (3.5-5.1); Sodium 142 mmol/L (137-145)
[2022-12-11] MEDS ORDERED: NEOSTIGMINE 1 MG/ML 10 ML VIAL ONE (09:12)
[2022-12-11] MEDS ORDERED: MIDAZOLAM 2 MG/2 ML VIAL ONE (09:12)
[2022-12-11] MEDS ORDERED: PROPOFOL 10 MG/ML 20 ML VIAL IV ONE (09:12)
[2022-12-11] MEDS ORDERED: ePHEDrine 50 MG/ML 1 ML VIAL ONE (09:12)
[2022-12-11] MEDS ORDERED: SUCCINYLCHOLINE CHLORIDE 200 MG/10 ML VIAL IV ONE (09:12)
[2022-12-11] MEDS ORDERED: LIDOCAINE 2% INJ 20 MG/ML (2 ML VIAL) ONE (09:12)
[2022-12-11] MEDS ORDERED: ROCURONIUM 10 MG/ML (5 ML VIAL) IV ONE (09:12)
[2022-12-11] MEDS ORDERED: GLYCOPYRROLATE 0.2 MG/ML 2 ML VIAL ONE (09:12)
[2022-12-11] MEDS ORDERED: fentaNYL (PF) 50 MCG/ML 2 ML AMP ONE (09:12)
[2022-12-11] MEDS ORDERED: BUPIVACAINE (PF) 0.25% 30 ML VIAL SQ ONE (09:38)
[2022-12-11 10:15] VITALS: TEMP 97.2
[2022-12-11 11:22] VITALS: BP 131/81; PULSE 71; RESP 16
--- NOTE | 2022-12-11 12:36 | P.OP ---
Date of Procedure: 12/11/22 Preoperative Diagnosis: Cholecystitis Postoperative Diagnosis: Cholecystitis Procedure(s) Performed: Laparoscopic cholecystectomy Anesthesia: [place] Surgeon: Jay Hooper Estimated Blood Loss (ml): 5 Pathology: other (Gallbladder) Condition: stable Disposition: PACU Description of Procedure: The patient was placed on the operating table. The patient received a general endotracheal tube anesthesia. The patients abdomen was prepped and draped in the usual sterile fashion. Through an infraumbilical stab incision, the fascia of the anterior abdominal wall was grasped with a pair of Kochers and then the Veress needle was placed in the peritoneal cavity. Position of the Veress needle was confirmed with positive drop test. The abdomen was then insufflated. After adequate insufflation, the 10 mm trocar was placed in the peritoneal cavity. Following this the laparoscope was placed in the peritoneal cavity. The patient was placed in the head-up, right side up position and then a 5 mm trocar was placed in the right lateral and right subcostal position under direct visualization. A 8 mm trocar was placed in the epigastric position. The gallbladder was grasped in the fundus and infundibulum. Traction on the gallbladder was placed in the lateral and the cephalad positions. The triangle of Calot was visualized.. The cystic duct was bluntly dissected until the union of the cystic duct and common bile duct was seen. A critical view of safety was achieved. The cystic duct was then divided and sealed with the Harmonic scissors. A PDS Endoloop was then placed throughout the cystic duct stump. The cystic artery divided and sealed with the Harmonic scissors. The gallbladder was then removed from the liver bed using Harmonic scissors. The gallbladder was then extracted through the epigastric port site. Operative field was checked for any bleeding spots and Harmonic scissors was used to coagulate the liver bed. The abdomen was irrigated. The trocars were removed. The skin was closed using interrupted 3-0 Vicryl suture. Dermabond dressing were applied. The patient tolerated the procedure well.
== END 2022-12-11 11:55 ==
LOC: OR 07:39
PROVIDERS: ATTEND Surgery
DX: K80.10 Calculus of gallbladder with chronic cholecystitis without obstruction (principal); I11.0 Hypertensive heart disease with heart failure; I50.9 Heart failure, unspecified; E78.5 Hyperlipidemia, unspecified; F41.9 Anxiety disorder, unspecified; F32.A Depression, unspecified; N28.9 Disorder of kidney and ureter, unspecified; Z88.0 Allergy status to penicillin; Z79.1 Long term (current) use of non-steroidal anti-inflammatories (NSAID); Z79.899 Other long term (current) drug therapy
CPT/HCPCS: 88304; 80048; 85027; 47562; J2250; J0330; J1100; J2710; J0690; J2405; J3010; J2704; J1644; J2001

== ENCOUNTER → 2023-08-14 | Outpatient (CLI) | payer MEDICARE, OTHER ==
[2023-08-14 18:20] LABS: HCT 42.4 % (37.2-46.3); HGB 13.7 g/dL (12.0-15.0); MCH 29.1 pg (27.0-32.0); MCHC 32.3 g/dL (32.0-37.0); MCV 90.2 FL (80.0-97.0); Mean Platelet Volume 10.3 FL (9.5-12.2); NRBC Per 100 WBC 0 X 10*3/uL (0.00-0.01); Platelet Count 197 X 10*3/uL (140-440); RDW 14.3 % (11.5-14.5); WBC 7.87 X 10*3/uL (4.50-10.00)
[2023-08-14 18:36] LABS: BUN/Creat Ratio 15.14 Ratio (12.00-20.00); Blood Urea Nitrogen 10.6 mg/dL (9.0-27.0); Calcium 9.3 mg/dL (8.7-10.3); Carbon Dioxide 25.3 mmol/L (21.6-31.8); Chloride 106 mmol/L (96-109); Glucose 88 mg/dL (70-110); Potassium 3.6 mmol/L (3.5-5.5); Sodium 143 mmol/L (135-145)
== END | disposition home or self-care (01) ==
LOC: LABWHC1 14:43
PROVIDERS: ATTEND Internal Medicine Cardiovascular Disease
DX: I48.11 Longstanding persistent atrial fibrillation (principal)
CPT/HCPCS: 36415; 80048; 84443; 85027

== ENCOUNTER → 2023-11-26 | Outpatient (CLI) | payer MEDICARE, OTHER ==
--- NOTE | 2023-11-26 21:34 | US ---
EXAMINATION TYPE: US gallbladder DATE OF EXAM: 11/26/2023 COMPARISON: US 10/16/2022 CLINICAL INDICATION: Female, 73 years old with history of R19.7 DIARRHEA; Patient has an unknown surg ical history. Diarrhea. TECHNIQUE: Multiple sonographic images of the right upper quadrant are obtained. FINDINGS: EXAM MEASUREMENTS: Liver Length: 14.4 cm Gallbladder Wall: Not visualized CBD: 1.02 cm Right Kidney: 10.4 x 4.7 x 5.3 cm MINISTER HELPER NOTES: Exam is limited due to body habitus and gas. Pancreas: Obscured. Liver: Appears very coarse in echotexture. Complex area seen within the right lobe: 2.8 x 3.2 x 2.2 cm. Gallbladder: Not visualized. Question surgical history. CBD: Measures 1.02 cm. Patient unsure on surgical history- if patient has not had cholecystectomy, t hen CBD appears dilated. Right Kidney: No hydronephrosis or masses seen Pancreas is obscured due to overlying bowel gas. Common bile duct is dilated measuring up to 1.0 cm. Nonvisualization of the gallbladder. Right kidney appears unremarkable evidence of hydronephrosis, ma ss, or nephrolithiasis. Similar appearance of complex right hepatic lobe cyst with thin septations. IMPRESSION: Limited exam due to patient's body habitus and overlying bowel gas. 1. Gallbladder is not visualized. May be surgically absent versus contracted. Correlate with clinica l history. 2. Common bile duct is dilated measuring up to 10 mm. This can be normal for a postcholecystectomy p atient otherwise consider further evaluation with biliary labs and MRCP. 3. Similar appearance of hepatic complex cyst.
== END | disposition home or self-care (01) ==
LOC: RADUSWWP 08:23
PROVIDERS: ATTEND Family Medicine
DX: R19.7 Diarrhea, unspecified (principal)
CPT/HCPCS: 76705

== ENCOUNTER → 2024-05-26 | Outpatient (CLI) | payer MEDICARE, OTHER ==
--- NOTE | 2024-05-26 11:12 | US ---
EXAMINATION TYPE: US Aorta Screening DATE OF EXAM: 05/26/2024 COMPARISON: NONE CLINICAL INDICATION: Female, 74 years old with history of Z13.6 Screening for cardiovascular disorder s;; screening TECHNIQUE: Multiple sonographic images of the abdominal aorta are obtained with grayscale and color D oppler imaging. FINDINGS: EXAM MEASUREMENTS: Abdominal Aorta: Proximal: 1.7 x 2.2cm Mid: 1.7 x 1.9cm Distal: 1.5 x 1.6cm Bifurcation: Right Iliac: obscured Left Iliac: obscured SHROUD LINE TIER NOTES: *Technical limitations due to patient's body habitus and large amount of overlying bowel gas. no evidence of AAA at this time as visualized IMPRESSION: No evidence for aortic aneurysm. [facility], , 05/26/2024 11:09 AM
--- NOTE | 2024-05-27 09:48 | MM ---
Reason for Exam: Screening (asymptomatic). Last mammogram was performed 2 year(s) and 5 month(s) ago. Patient History: Menarche at age 15. First Full-Term at age 20. Postmenopausal. Mother had breast cancer. Risk Values: Racheal 5 year model risk: 3.3%. NCI Lifetime model risk: 8.4%. Prior Study Comparison: 05/28/2016 Bilateral Screening Mammogram, [facility]. 01/02/2022 Bilateral MG 3D screening mammo w/cad, [facility]. Tissue Density: There are scattered areas of fibroglandular density. Findings: Analyzed By CAD. There is no suspicious group of microcalcifications or new suspicious mass in either breast. Overall Assessment: Negative, BI-RAD 1 Management: Screening Mammogram of both breasts in 1 year. . Patient should continue monthly self-breast exams. A clinical breast exam by your physician is recommended on an annual basis. This exam should not preclude additional follow-up of suspicious palpable abnormalities. Note on Racheal scores and lifetime risk: 1. A Racheal score greater than 3% is considered moderate risk. If this is the case, consider specialist referral to assess eligibility for a risk reducing agent. 2. If overall lifetime risk for the development of breast cancer is 20% or higher, the patient may qualify for future screening with alternating mammogram and breast MRI. [facility], , 05/27/2024 9:45 AM. Electronically signed and approved by: Frederic Cedillo M.D. Radiologis
== END | disposition home or self-care (01) ==
LOC: RADUSWWP 09:06
PROVIDERS: ATTEND Family Medicine
DX: Z12.31 Encounter for screening mammogram for malignant neoplasm of breast (principal); Z13.6 Encounter for screening for cardiovascular disorders; Z78.0 Asymptomatic menopausal state; Z80.3 Family history of malignant neoplasm of breast; R92.323 Mammographic fibroglandular density, bilateral breasts
CPT/HCPCS: 76706; 77063; 77067

== ENCOUNTER → 2024-11-10 | Day surgery (SDC) | payer MEDICARE, OTHER ==
[2024-11-09 09:21] VITALS: BMI 36.9
[~2024-11-10] MED LIST changes: -ACETAMINOPHEN TAB 500 MG TAB PO PRN; -DEXAMETHASONE SOD PHOSPHATE 4 MG/ML 1 ML VIAL IV ONE; -HEPARIN SODIUM,PORCINE/PF 5,000 UNIT/0.5 ML SYRINGE SQ PRN; -HYDROmorphone 0.5 MG/0.5 ML SYRINGE IVP PRN; -LIDOCAINE 1% (10MG/ML) FOR IV START INTRADERMA PRN; -MIDAZOLAM 2 MG/2 ML VIAL IV PRN; -ONDANSETRON 4 MG/2 ML VIAL IVP ONE
[2024-11-10 09:34] VITALS: BP 133/60; PULSE 67; RESP 18; TEMP 97.5
== END ==
LOC: ORWHC2ENDO 08:35
PROVIDERS: ATTEND Internal Medicine Gastroenterology
DX: R19.5 Other fecal abnormalities (principal); Z53.9 Procedure and treatment not carried out, unspecified reason

== ENCOUNTER 2024-12-05 01:38 | Emergency (ER) | payer MEDICARE, OTHER ==
[2024-12-05 01:51] VITALS: RESP 18; TEMP 98.3
[2024-12-05 03:19] LABS: Basophils # (A) 0.05 10*3/uL (0.00-0.10); Basophils % (A) 0.6 %; Eosinophils # (A) 0.08 10*3/uL (0.04-0.35); HCT 40.8 % (37.2-46.3); HGB 13.6 g/dL (12.0-15.0); Immature Platelet Fraction 2.9 % (1.1-6.1); Lymphocytes # (A) 1.96 10*3/uL (0.90-5.00); Lymphocytes % (A) 23.5 %; MCH 29.9 pg (27.0-32.0); MCHC 33.3 g/dL (32.0-37.0); MCV 89.7 fL (80.0-97.0); Mean Platelet Volume 10.8 fL (9.5-12.2); Monocytes # (A) 0.55 10*3/uL (0.20-1.00); Monocytes % (A) 6.6 %; Neutrophils # (A) 5.65 10*3/uL (1.80-7.70); Neutrophils % (A) 67.7 %; Platelet Count 148 10*3/uL (140-440); RBC 4.55 10*6/uL (4.10-5.20); RDW 14.2 % (11.5-14.5); WBC 8.34 10*3/uL (4.50-10.00)
[2024-12-05 03:31] LABS: ALT 25 U/L (4-34); AST 30 U/L (14-36); African American GFR (CKD) 83 (>60 ml/min/1.73 sqM); Albumin 3.7 g/dL (3.5-5.0); Alkaline Phosphatase 84 U/L (38-126); Anion Gap 9 mmol/L; Blood Urea Nitrogen 19 mg/dL (7-17); Calcium 9.2 mg/dL (8.4-10.2); Carbon Dioxide 27 mmol/L (22-30); Chloride 100 mmol/L (98-107); Glucose 109 mg/dL (74-99); Non-African American GFR(CKD) 72 (>60 ml/min/1.73 sqM); Potassium 3.5 mmol/L (3.5-5.1); Sodium 136 mmol/L (137-145); Total Bilirubin 1.1 mg/dL (0.2-1.3); Total Protein 6.9 g/dL (6.3-8.2)
[2024-12-05 03:42] LABS: INR 1.2 (<1.2); Prothrombin Time 12.5 sec (10.0-12.5)
[2024-12-05 05:14] VITALS: BP 121/100; PULSE 55
--- NOTE | 2024-12-05 05:34 | CT ---
EXAM: CT Abdomen and Pelvis Without and With Intravenous Contrast CLINICAL HISTORY: ITS.REASON CT Reason: gi bleed protocol TECHNIQUE: Axial computed tomographic images of the abdomen and pelvis without and with intravenous contrast. CTDI is 100.5 mGy and DLP is 4885.6 mGy-cm. This CT exam was performed using one or more of the following dose reduction techniques: automated exposure control, adjustment of the mA and/or kV according to patient size, and/or use of iterative reconstruction technique. COMPARISON: No relevant prior studies available. FINDINGS: VASCULATURE: Aorta: Calcifications are seen within a nondilated aorta. No dissection. Celiac trunk and mesenteric arteries: No acute findings. No occlusion or significant stenosis. Renal arteries: No acute findings. No occlusion or significant stenosis. Iliac arteries: No acute findings. No occlusion or significant stenosis. Lung bases: Unremarkable. No mass. No consolidation. Pleural space: Trace bilateral pleural effusions. Heart: Moderate to severe enlargement of the heart. ABDOMEN: Liver: Simple cyst is seen within the right lobe of the liver which does not require follow-up. Gallbladder and bile ducts: Unremarkable. No calcified stones. No ductal dilation. Pancreas: Question of a hypodense lesion seen within the neck process of the pancreas seen on series 6 interval image 27 measuring 1.4 cm. No ductal dilation. Spleen: Unremarkable. No splenomegaly. Adrenals: Unremarkable. No mass. Kidneys and ureters: Bosniak type I right renal cyst which does not require follow-up. Stomach and bowel: Colonic diverticulosis without evidence of acute diverticulitis. No obstruction. PELVIS: Appendix: No findings to suggest acute appendicitis. Bladder: Unremarkable. No stones. No mass. Reproductive: Unremarkable as visualized. ABDOMEN and PELVIS: Intraperitoneal space: Unremarkable. No significant fluid collection. No free air. Bones/joints: Degenerative changes are seen within the spine and hips. No acute fracture. No dislocation. Soft tissues: Unremarkable. Lymph nodes: Unremarkable. No enlarged lymph nodes. IMPRESSION: 1. No acute intra-abdominal or pelvic findings. No CT evidence of active gastrointestinal bleeding. 2. Question of a hypodense lesion seen within the neck of the pancreas, recommend nonemergent outpatient pancreatic MRI for further evaluation. 3. Trace bilateral pleural effusions.
--- NOTE | 2024-12-05 06:38 | ED ---
General Adult HPI - General Chief complaint: GI Bleed Stated complaint: Blood in Stool,MEKHI,Weakness Time Seen by Provider: 12/05/24 02:15 Source: patient, RN notes reviewed, old records reviewed Mode of arrival: wheelchair Limitations: no limitations - History of Present Illness Initial comments: 74-year-old female with past medical history markable for atrial fibrillation on blood thinners, heart failure, hypertension, hyperlipidemia. Presents today for 2 primary complaints. States that she has been having a minimally productive cough for the last few days. Also states she used the restroom earlier this evening and noticed some blood in the toilet and on the paper. She is on blood thinners and became concerned. Denies any dark stools. Denies any hematemesis. Does have a history of hemorrhoids. Denies any abdominal pain. Denies any other acute complaints. Denies chest pain. Denies shortness of breath. Denies fevers or chills or cough. Presents for further evaluation at this time. - Related Data Home Medications Medication Instructions Recorded Confirmed Atorvastatin [Lipitor] 80 mg PO DAILY 03/17/18 11/09/24 Citalopram Hydrobromide [CeleXA] 20 mg PO DAILY 02/25/22 11/09/24 Ezetimibe [Zetia] 10 mg PO DAILY 02/25/22 11/09/24 hydroCHLOROthiazide 12.5 mg PO DAILY 02/25/22 11/09/24 Magnesium Oxide [Mag-Ox] 400 mg PO DAILY 07/10/22 11/09/24 Metoprolol Succinate (ER) [Toprol 50 mg PO DAILY 07/10/22 11/09/24 Xl] allopurinoL 100 mg PO HS 07/10/22 11/09/24 amLODIPine [Norvasc] 10 mg PO DAILY 07/10/22 11/09/24 Apixaban [Eliquis] 5 mg PO BID 11/09/24 11/09/24 Previous Rx's Medication Instructions Recorded Docusate [Colace] 100 mg PO BID #20 capsule 12/11/22 Azithromycin [Zithromax] 250 mg PO DAILY 4 Days #4 tab 12/05/24 Allergies Allergy/AdvReac Type Severity Reaction Status Date / Time Penicillins Allergy Rash/Hives Verified 12/05/24 01:51 Review of Systems ROS Statement: Those systems with pertinent positive or pertinent negative responses have been documented in the HPI. Review of Systems: CONST: Denies fever EYES: Denies blurry vision ENT: Denies nasal congestion C/V: Denies Chest pain RESP: Denies shortness of breath GI: Endorses blood per rectum : Denies dysuria SKIN: Denies rash. MSK: Denies joint pain. NEURO: Denies headache ROS Other: All systems not noted in ROS Statement are negative. Past Medical History Past Medical History: Atrial Fibrillation, Heart Failure, Hyperlipidemia, Hypertension, Osteoarthritis (OA) Additional Past Medical History / Comment(s): Borderline Diabetes. Black stool. Migraines. History of Any Multi-Drug Resistant Organisms: None Reported Past Surgical History: Tonsillectomy, Tubal Ligation Additional Past Surgical History / Comment(s): Colonoscopies. Past Anesthesia/Blood Transfusion Reactions: No Reported Reaction Additional Past Anesthesia/Blood Transfusion Reaction / Comment(s): Unknown family hx. Past Psychological History: Anxiety, Depression Smoking Status: Never smoker Past Alcohol Use History: None Reported Past Drug Use History: None Reported - Past Family History Mother Family Medical History: Unable to Obtain General Exam - General Exam Comments Initial Comments: General: Appears in no acute distress. HEAD: Normal with no signs of head trauma. EYES: PERRLA, EOMI, conjunctiva normal, no discharge. ENT: Hearing grossly intact, normal oropharynx. RESPIRATORY: Clear breath sounds bilaterally. No wheezes, rales, or rhonchi. No hypoxia. C/V: Regular rate and rhythm. S1 and S2 auscultated, no edema, peripheral pulses 2+ and intact throughout ABD: Abd is soft, nontender, nondistended. Visual rectal exam performed in the presence of female staff member. Shows an uncomplicated external hemorrhoid. Nonbloody stool present. EXT: Normal range of motion, no obvious deformity SKIN: No rashes or lesions observed on exposed skin. NEURO: Alert and oriented x 4. Limitations: no limitations Course Vital Signs 12/05/24 12/05/24 01:47 05:10 Temperature 98.3 F Pulse Rate 100 55 L Respiratory 18 18 Rate Blood Pressure 130/100 121/100 O2 Sat by Pulse 97 98 Oximetry Medical Decision Making - Medical Decision Making Was pt. sent in by a medical professional or institution (, PA, HEAT [employer] MECHANIC, urgent care, hospital, or residential...) When possible be specific @ -No Did you speak to anyone other than the patient for history (EMS, parent, family, police, friend...)? What history was obtained from this source @ -No Did you review nursing and triage notes (agree or disagree)? Why? @ -I reviewed and agree with nursing and triage notes Were old charts reviewed (outside hosp., previous admission, EMS record, old EKG, old radiological studies, urgent care reports/EKG's, residential records)? Report findings @ -No old charts were reviewed Differential Diagnosis (chest pain, altered mental status, abdominal pain women, abdominal pain men, vaginal bleeding, weakness, fever, dyspnea, syncope, headache, dizziness, GI bleed, back pain, seizure, CVA, palpatations, mental health, musculoskeletal)? @ -GI bleed, hemorrhoids, pneumonia, bronchitis. This list is not all- inclusive. EKG interpreted by me (3pts min.). @ -As above X-rays interpreted by me (1pt min.). @ -Chest x-ray shows no obvious acute cardiopulmonary process. CT interpreted by me (1pt min.). @ -CTA of the abdomen pelvis shows no evidence of GI bleed or acute abdominal process. Patient does have a possible lesion in the pancreas with recommended follow-up imaging. U/S interpreted by me (1pt. min.). @ -None done What testing was considered but not performed or refused? (CT, X-rays, U/S, labs)? Why? @ -None What meds were considered but not given or refused? Why? @ -None Did you discuss the management of the patient with other professionals (professionals i.e. , PA, HE[employer] MECHANIC, lab, RT, psych nurse, social sciences lecturer, hvac service technician, teacher, ambulance officer, case repairer)? Give summary @ -No Was smoking cessation discussed for >3mins.? @ -No Was critical care preformed (if so, how long)? @ -No Were there social determinants of health that impacted care today? How? (Homelessness, low income, unemployed, alcoholism, drug addiction, jj sportation, low edu. Level, literacy, decrease access to med. care, group home, rehab)? @ -No Was there de-escalation of care discussed even if they declined (Discuss DNR or withdrawal of care, Hospice)? DNR status @ -No What co-morbidities impacted this encounter? (DM, HTN, Smoking, COPD, CAD, Cancer, CVA, ARF, Chemo, Hep., AIDS, mental health diagnosis, sleep apnea, morbid obesity)? @ -None Was patient admitted / discharged? Hospital course, mention meds given and route, prescriptions, significant lab abnormalities, going to OR and other pertinent info. @ -Patient presents with a single episode of blood per rectum. Also is having some cough for the last few days. We will obtain abdominal workup, CT abdomen pelvis, chest x-ray. Rectal exam unremarkable except for a hemorrhoid. Vitals are within acceptable limits. Patient was in agreement this plan. EKG shows no signs of acute ischemia. Troponin is within normal limits. Remainder the labs unremarkable including a normal hemoglobin. CT imaging revealed no evidence of GI bleed or acute abdominal process. Has a lesion in the pancreas head which could be significant. Recommend follow-up. Chest x-ray unremarkable. I update the patient. She expressed understanding of testing comfortably. Did the patient have a productive cough, I will treat for tracheobronchitis with azithromycin. She was in agreement this plan. Bleeding is likely from the hemorrhoid and is currently not bleeding and she expressed understanding. Rec ommend she closely monitor symptoms return to the ER for any worsening symptoms. She should follow-up with her PCP. We discussed the finding of the lesion in the pancreatic head and she was in agreement plan for follow-up with PCP regarding this. I will provide the patient with a prescription for azithromycin. I instructed the patient to follow up with their PCP in the next 1-3 days.. I explained that the patient should return to the emergency department if they experience any worsening symptoms. Strict return precautions were discussed with the patient. The patient expressed understanding of these instructions. I answered all questions that the patient had. The patient was discharged home in good condition with their prescriptions and follow up information. Undiagnosed new problem with uncertain prognosis? @ -No Drug Therapy requiring intensive monitoring for toxicity (Heparin, Nitro, Insulin, Cardizem)? @ -No Were any procedures done? @ -No Diagnosis/symptom? @ -Hemorrhoid, tracheobronchitis, pancreatic head lesion Acute, or Chronic, or Acute on Chronic? @ -Acute Uncomplicated (without systemic symptoms) or Complicated (systemic symptoms)? @ -Uncomplicated Side effects of treatment? @ -No Exacerbation, Progression, or Severe Exacerbation? @ -No Poses a threat to life or bodily function? How? (Chest pain, [place], [place], pneumonia, PE, COPD, DKA, ARF, appy, cholecystitis, CVA, Diverticulitis, Homicidal, Suicidal, threat to staff... and all critical care pts) @ -Unlikely at this time - Lab Data Result diagrams: 12/05/24 03:00 12/05/24 03:00 Lab Results 12/05/24 12/05/24 12/05/24 Range/Units 02:55 03:00 03:00 WBC 8.34 (4.50-10.00) 10*3/uL RBC 4.55 (4.10-5.20) 10*6/uL Hgb 13.6 (12.0-15.0) g/dL Hct 40.8 (37.2-46.3) % MCV 89.7 (80.0-97.0) fL MCH 29.9 (27.0-32.0) pg MCHC 33.3 (32.0-37.0) g/dL Plt Count 148 (140-440) 10*3/uL MPV 10.8 (9.5-12.2) fL Immature Gran % (Auto) 0.6 % Neutrophils % 67.7 % Lymphocytes % 23.5 % Monocytes % 6.6 % Eosinophils % 1.0 % Basophils % 0.6 % Immature Gran # 0.05 H (0.00-0.04) 10*3/uL Neutrophils # 5.65 (1.80-7.70) 10*3/uL Lymphocytes # 1.96 (0.90-5.00) 10*3/uL Monocytes # 0.55 (0.20-1.00) 10*3/uL Eosinophils # 0.08 (0.04-0.35) 10*3/uL Basophils # 0.05 (0.00-0.10) 10*3/uL Immature Plt Fraction 2.9 (1.1-6.1) % PT 12.5 (10.0-12.5) sec INR 1.2 H (<1.2) APTT 24.0 (22.0-30.0) sec Sodium (137-145) mmol/L Potassium (3.5-5.1) mmol/L Chloride (98-107) mmol/L Carbon Dioxide (22-30) mmol/L Anion Gap mmol/L BUN (7-17) mg/dL Creatinine (0.52-1.04) mg/dL Est GFR (CKD-EPI)AfAm (>60 ml/min/1.73 sqM) Est GFR (CKD-EPI)NonAf (>60 ml/min/1.73 sqM) Glucose (74-99) mg/dL Calcium (8.4-10.2) mg/dL Total Bilirubin (0.2-1.3) mg/dL AST (14-36) U/L ALT (4-34) U/L Alkaline Phosphatase (38-126) U/L Troponin I (0.000-0.034) ng/mL Total Protein (6.3-8.2) g/dL Albumin (3.5-5.0) g/dL Blood Type A Positive Blood Type Confirm Blood Type Recheck No Previous Record Bld Type Recheck Status CABO Indicated Antibody Screen NEGATIVE Spec Expiration Date 12/08/2024 - 235412/05/24 12/05/24 12/05/24 Range/Units 03:00 03:00 03:00 WBC (4.50-10.00) 10*3/uL RBC (4.10-5.20) 10*6/uL Hgb (12.0-15.0) g/dL Hct (37.2-46.3) % MCV (80.0-97.0) fL MCH (27.0-32.0) pg MCHC (32.0-37.0) g/dL Plt Count (140-440) 10*3/uL MPV (9.5-12.2) fL Immature Gran % (Auto) % Neutrophils % % Lymphocytes % % Monocytes % % Eosinophils % % Basophils % % Immature Gran # (0.00-0.04) 10*3/uL Neutrophils # (1.80-7.70) 10*3/uL Lymphocytes # (0.90-5.00) 10*3/uL Monocytes # (0.20-1.00) 10*3/uL Eosinophils # (0.04-0.35) 10*3/uL Basophils # (0.00-0.10) 10*3/uL Immature Plt Fraction (1.1-6.1) % PT (10.0-12.5) sec INR (<1.2) APTT (22.0-30.0) sec Sodium 136 L (137-145) mmol/L Potassium 3.5 (3.5-5.1) mmol/L Chloride 100 (98-107) mmol/L Carbon Dioxide 27 (22-30) mmol/L Anion Gap 9 mmol/L BUN 19 H (7-17) mg/dL Creatinine 0.82 (0.52-1.04) mg/dL Est GFR (CKD-EPI)AfAm 83 (>60 ml/min/1.73 sqM) Est GFR (CKD-EPI)NonAf 72 (>60 ml/min/1.73 sqM) Glucose 109 H (74-99) mg/dL Calcium 9.2 (8.4-10.2) mg/dL Total Bilirubin 1.1 (0.2-1.3) mg/dL AST 30 (14-36) U/L ALT 25 (4-34) U/L Alkaline Phosphatase 84 (38-126) U/L Troponin I 0.014 (0.000-0.034) ng/mL Total Protein 6.9 (6.3-8.2) g/dL Albumin 3.7 (3.5-5.0) g/dL Blood Type Blood Type Confirm A Positive Blood Type Recheck Bld Type Recheck Status Antibody Screen Spec Expiration Date - EKG Data -: EKG Interpreted by Me EKG Comments: 12-lead Electrocardiogram Interpretation Note EKG was reviewed and interpreted by myself. 12-lead ECG performed at 0218 is interpreted by me as revealing atrial fibrillation at a rate of 94 beats per minute. [place] is rightward deviated. QRS duration is 154 ms, QTc is 457 ms.. There were no ST or T wave abnormalities to suggest myocardial ischemia or injury. R wave progression across the precordium was satisfactory. By my interpretation this EKG is non-diagnostic for acute ischemia. Disposition Clinical Impression: Tracheobronchitis, External hemorrhoid Narrative: Pancreatic head lesion. Disposition: ADMITTED IP TO THIS HOSP Condition: Stable Instructions (If sedation given, give patient instructions): Hemorrhoids (ED), Acute Bronchitis (ED) Prescriptions: Azithromycin [Zithromax] 250 mg PO DAILY 4 Days #4 tab Is patient prescribed a controlled substance at d/c from ED?: No Referrals: Jelena Norton DO [Primary Care Provider] - 1-2 days Time of Disposition: 07:23
--- NOTE | 2024-12-05 07:23 | XR ---
EXAMINATION TYPE: XR chest 1V portable DATE OF EXAM: 12/05/2024 7:10 AM COMPARISON: Chest radiographs from 07/10/2022. CLINICAL INDICATION: Female, 74 years old with history of cough; [facility] TECHNIQUE: XR chest 1V portable Frontal view of the chest. FINDINGS: Lungs/Pleura: There is no evidence of pleural effusion, focal consolidation, or pneumothorax. Pulmonary vascularity: Pulmonary vascular congestion. Heart/mediastinum: Cardiomediastinal silhouette is enlarged. Atherosclerotic calcifications are seen in the aorta. Musculoskeletal: No acute osseous pathology. Other findings: None IMPRESSION: No acute cardiopulmonary disease/process. [facility], , 12/05/2024 7:21 AM
[2024-12-05] MEDS: AZITHROMYCIN 500 MG TAB PO STA (07:47)
== END 2024-12-05 08:04 | disposition other institution (70) ==
LOC: EC 01:38
DX: J40 Bronchitis, not specified as acute or chronic (principal); K64.4 Residual hemorrhoidal skin tags; I48.91 Unspecified atrial fibrillation; I11.0 Hypertensive heart disease with heart failure; E78.5 Hyperlipidemia, unspecified; Z79.01 Long term (current) use of anticoagulants; Z88.0 Allergy status to penicillin
CPT/HCPCS: 36415; 93005; 86900; 86901; 80053; 84484; 85025; 85610; 85730; 86850; 71045; 74174; 99285; Q9967